=== PATIENT | male | born 1970 | race African-American/Black ===

== ENCOUNTER 2016-06-30 16:58 | Emergency (ER) | payer BC ==
[~2016-06-30] VITALS: Ht 182.9 cm; Wt 85.0 kg
[2016-06-30 17:54] VITALS: BP 127/85
[2016-06-30] MEDS ORDERED: KETOROLAC 60MG/2ML VIAL IM ONE (18:15)
== END 2016-06-30 18:40 | disposition home or self-care (01) ==
LOC: ER 16:59
DX: S16.1XXA Strain of muscle, fascia and tendon at neck level, initial encounter (principal); S43.402A Unspecified sprain of left shoulder joint, initial encounter; V49.49XA Driver injured in collision with other motor vehicles in traffic accident, initial encounter; Y93.89 Activity, other specified; Y99.9 Unspecified external cause status; Y92.89 Other specified places as the place of occurrence of the external cause
CPT/HCPCS: 99283; Z7610

== ENCOUNTER 2022-07-25 17:24 | Emergency (ER) | payer BC ==
[~2022-07-25] VITALS: Ht 180.3 cm; Wt 106.6 kg
[2022-07-25] MEDS ORDERED: ONDANSETRON HCL 4MG/2ML INJ IV STA (17:43)
[2022-07-25] MEDS ORDERED: MORPHINE SULFATE 4 MG/ML CPJ (NOT FOR IM USE) IV STA (17:43)
[2022-07-25] MEDS ORDERED: LIDOCAINE HCL/EPINEPHRINE 1%-EPI 1:100,000 20 ML VIAL INFIL ONE (17:45)
[2022-07-25] MEDS ORDERED: SODIUM CHLORIDE 0.9% 1,000 ML IV ONE (17:45)
[2022-07-25 17:56] LABS: HEMATOCRIT. 41.4 % (42.0-52.0); HEMOGLOBIN. 13.8 g/dL (14.0-18.0); MEAN CORPUSCULAR HEMOGLOBIN 31.2 pg (28.0-32.0); MEAN CORPUSCULAR VOLUME 93.9 fL (80.0-94.0); MEAN PLATELET VOLUME 7.9 fl (7.4-10.4); PLATELET 276 x1000/uL (130-400); RED BLOOD CELL COUNT 4.41 mill/uL (4.7-6.1)
[2022-07-25 18:04] LABS: CHLORIDE 111 mEq/L (98-107)
[2022-07-25] MEDS ORDERED: LIDOCAINE HCL/EPINEPHRINE 1%-EPI 1:100,000 30 ML VIAL INFIL NR (19:00)
[2022-07-25 19:03] LABS: PLATELET ESTIMATE NORMAL
[2022-07-25] MEDS ORDERED: IBUP-2028 MT (19:28)
[2022-07-25 20:41] VITALS: BP 128/67
[2022-07-25] MEDS ORDERED: IOHEXOL-300 100 ML BOTTLE ONE (23:12)
== END 2022-07-25 21:57 | disposition home or self-care (01) ==
LOC: ER 17:24
DX: S31.113A Laceration without foreign body of abdominal wall, right lower quadrant without penetration into peritoneal cavity, initial encounter (principal); W26.9XXA Contact with unspecified sharp object(s), initial encounter; Y93.89 Activity, other specified; Y92.89 Other specified places as the place of occurrence of the external cause; Y99.8 Other external cause status
CPT/HCPCS: 12002; 36415; 71045; 71260; 73030; 73080; 73560; 74177; 80053; 83690; 83880; 84484; 85025; 96361; 96374; 96375; 99285; J2270; J2405; J7030; Q9967; Z7610; J3490

== ENCOUNTER 2022-08-01 14:06 | Emergency (ER) | payer BC ==
[~2022-08-01] VITALS: Ht 180.3 cm; Wt 107.0 kg
[~2022-08-01 14:06] MED LIST: IBUP-2028 MT
[2022-08-01 14:16] VITALS: BP 129/84
[2022-08-01] MEDS ORDERED: METH-653 MT (16:00)
== END 2022-08-01 16:21 | disposition home or self-care (01) ==
LOC: ER 14:06
DX: Z48.00 Encounter for change or removal of nonsurgical wound dressing (principal)
CPT/HCPCS: 99281